=== PATIENT | female | born 1985 | race Caucasian/White ===

== ENCOUNTER 2018-05-28 10:37 | Emergency (ER) | payer OTHER, SELFPAY ==
[2018-05-28 10:53] VITALS: BP 128/92; PULSE 68; RESP 16; TEMP 36.3; O2SAT 97
[2018-05-28 11:32] LABS: Bacteria Urine None Seen; WBC Urine None Seen (0-5/HPF)
[2018-05-28 11:43] LABS: RBC Urine 5-10/HPF (0-5/HPF)
[2018-05-28 11:44] LABS: Amorphous Sediment Urine 3+; Culture Indicated Urine Cult Not Indicated
[2018-05-28 12:12] VITALS: BP 112/66; PULSE 65; RESP 16; TEMP 36.6; O2SAT 100
--- NOTE | 2018-05-28 12:39 | ED_ITS ---
HPI - Female Genitourinary <Rubia Thorne PA-C - Last Filed: 05/28/18 20:59> General Chief complaint: Urogenital-Female Stated complaint: left low back/side pain x1 day Time Seen by Provider: 05/28/18 12:06 Source: patient Mode of arrival: ambulatory Limitations: no limitations History of Present Illness HPI Narrative: This 32-year-old female comes to ED due to acute onset of pain in her bladder area when she awoke early this morning. She states that this started as a pressure sensation like she needed to urinate badly, but when she went it did not relieve the pain. She states that she did not have any susnaa dysuria. She states that a couple hours later pain was getting worse so she got in line for the [place]. She states that she started feeling the pain in her left flank and in between the flank and the bladder, and at 1 point it felt like contractions and was really severe, hard to breathe, so she drove to the clinic and called EMS. They checked her out and she proceeded to come over on the [place]. She states that on the way here, the pain seemed to get better, largely subsided aside from sort of a warm, tingling sensation. She states that she feels a little bit tired now, thinks due to waking up early with the pain. She had some chills earlier. She has not had any fever. She has not had any nausea or vomiting. She has ongoing dysfunctional bleeding issues and spotting, thinks she might have had a little bit of hematuria but hard for her to tell due to the spotting. She denies any possibility of and is on OCP for DUB. She has not had any vaginal discharge or STD concerns. She states she is feeling just about ?100% better? at this point, not having pain, denies chest pain, dyspnea, or new pain or swelling in the extremities. She states that she had restarted Topamax and phentermine to help with weight, but discontinued these after about 4 days and not on any medications now aside from OCP. Related Data Allergies Allergy/AdvReac Type Severity Reaction Status Date / Time No Known Drug Allergies Allergy Verified 05/28/18 10:53 Review of Systems <Rubia Thorne PA-C - Last Filed: 05/28/18 20:59> Review of Systems All systems reviewed & are unremarkable except as noted in HPI and below PFSH <Rubia Thorne PA-C - Last Filed: 05/28/18 20:59> Comment: Previous heavy EtOH use on weekends, none currently Exam <Rubia Thorne PA-C - Last Filed: 05/28/18 20:59> Narrative Exam Narrative: GENERAL APPEARANCE: Patient sitting comfortably, in no distress. HEENT: PERRL, EOMI, no scleral icterus, normal oropharynx NECK: Supple LUNGS: Clear to auscultation bilaterally. HEART: Rate and rhythm regular, normal S1 and S2, no S3 or S4. ABDOMEN: Soft, nontender, nondistended, bowel sounds present x 4 quadrants, no masses palpable, no hepatosplenomegaly. No CVAT EXTREMITIES: No edema, no calf tender DERMATOLOGIC: No jaundice or exanthem NEUROLOGIC: Alert and oriented with normal speech and coordination Initial Vital Signs Initial Vital Signs: Vital Signs Temperature 97.4 F L 05/28/18 10:53 Pulse Rate 68 05/28/18 10:53 Respiratory Rate 16 05/28/18 10:53 Blood Pressure 128/92 H 05/28/18 10:53 Pulse Oximetry 97 05/28/18 10:53 <Leon Neville DO - Last Filed: 05/29/18 07:06> Initial Vital Signs Initial Vital Signs: Vital Signs Temperature 97.4 F L 05/28/18 10:53 Pulse Rate 68 05/28/18 10:53 Respiratory Rate 16 05/28/18 10:53 Blood Pressure 128/92 H 05/28/18 10:53 Pulse Oximetry 97 05/28/18 10:53 Course <Rubia Thorne PA-C - Last Filed: 05/28/18 20:59> Additional Information: We talked about doing lab work and KUB CT, however patient was feeling like pain largely resolved at the time of the visit. She elected to forego further workup, but was going to be in town for several more hours and agreed to return if any acutely worsening symptoms again. Suspect kidney stone that may have passed. Orders Ordered: Discontinued Medications Ibuprofen (Advil) 800 mg PO NOW ONE Stop: 05/28/18 12:27 Last Admin: 05/28/18 12:43 Dose: Not Given Vital Signs - 8 hr 05/28/18 10:53 05/28/18 12:12 Temperature 97.4 F L 97.8 F Pulse Rate 68 65 Respiratory Rate 16 16 Blood Pressure 128/92 H Blood Pressure [Left Arm] 112/66 Pulse Oximetry 97 100 <Leon Neville DO - Last Filed: 05/29/18 07:06> Orders Ordered: Discontinued Medications Ibuprofen (Advil) 800 mg PO NOW ONE Stop: 05/28/18 12:27 Last Admin: 05/28/18 12:43 Dose: Not Given Vital Signs - 8 hr 05/28/18 10:53 05/28/18 12:12 Temperature 97.4 F L 97.8 F Pulse Rate 68 65 Respiratory Rate 16 16 Blood Pressure 128/92 H Blood Pressure [Left Arm] 112/66 Pulse Oximetry 97 100 MDM - Female Genitourinary <Rubia Thorne PA-C - Last Filed: 05/28/18 20:59> Lab Data Lab Results 05/28/18 Range/Units 11:15 Urine RBC 5-10/hpf H (0-5/HPF) Urine WBC None seen (0-5/HPF) Amorphous Sediment 3+ Urine Bacteria None seen (None) Ur Culture Indicated? Cult not indicated Micro UA Comment Not Reportable Point of Care Testing Test Results Negative Urine Dip Bedside Urine Glucose Negative Bedside Urine Bilirubin - Negative Bedside Urine Ketone - Negative Urine Specific [place] 1.015 Bedside Urine Occult Blood +++ Bedside Urine pH 6.0 Bedside Urine Protein +/- 15 Bedside Urine Urobilinogen - Negative Bedside Urine Nitrite - Negative Bedside Urine Leukocytes - Negative Esterase <Leon Neville DO - Last Filed: 05/29/18 07:06> Lab Data Lab Results 05/28/18 Range/Units 11:15 Urine RBC 5-10/hpf H (0-5/HPF) Urine WBC None seen (0-5/HPF) Amorphous Sediment 3+ Urine Bacteria None seen (None) Ur Culture Indicated? Cult not indicated Micro UA Comment Not Reportable Point of Care Testing Test Results Negative Urine Dip Bedside Urine Glucose Negative Bedside Urine Bilirubin - Negative Bedside Urine Ketone - Negative Urine Specific [place] 1.015 Bedside Urine Occult Blood +++ Bedside Urine pH 6.0 Bedside Urine Protein +/- 15 Bedside Urine Urobilinogen - Negative Bedside Urine Nitrite - Negative Bedside Urine Leukocytes - Negative Esterase Discharge Plan Departure Patient Disposition: Home Clinical Impression: Acute left flank pain, Microhematuria Discharge Date/Time: 05/28/18 12:44 Interventions: ED Discharge Assessment Last Done: 05/28/18 12:42 Instructions: DI for Kidney Stones, DI for Flank Pain Activity Restrictions/Additional Instructions: Please return as we talked about if you have acutely worsening symptoms, or new symptoms such as vomiting or fever. Otherwise, it is reasonable to monitor at home since you are feeling so much better. I suspect that you had a kidney stone that passed given your description of the pain. We have given you a dose of Ibuprofen here and you can continue this if you need for any residual pain as well as tylenol if needed. As long as you continue to feel better, please check in with your PCP next week when you are not spotting to make sure the blood in the urine has resolved. You did not have evidence of a urinary infection on your microscopic analysis today. Prescriptions: Discontinued phentermine 15 MG capsule 15 mg PO QDAY Qty: 30 RF: 0 topiramate [Topamax] 25 MG tablet 25 mg PO Q DAY Qty: 30 RF: 0 Referrals: [facility] [Provider Group] <Leon Neville DO - Last Filed: 05/29/18 07:06> [facility] Attending Bassem Attestation: I was available for consultation during this patient's emergency department encounter
== END 2018-05-28 12:44 | disposition home or self-care (01) ==
PROVIDERS: Emergency Medicine; Emergency Provider Internal Medicine; Family Provider Nurse Practitioner; PCP Nurse Practitioner
DX: R10.9 Unspecified abdominal pain (principal); R31.29 Other microscopic hematuria
CPT/HCPCS: 81003; 81015; 81025; 99282; 99283

== ENCOUNTER 2018-05-30 07:33 | Emergency (ER) | payer OTHER, SELFPAY ==
[2018-05-30 07:42] VITALS: BP 137/78; PULSE 68; RESP 13; TEMP 36.8; O2SAT 100
[2018-05-30 07:51] VITALS: BP 137/78; PULSE 67; RESP 14; TEMP 36.8; O2SAT 100
--- NOTE | 2018-05-30 07:52 | ED_ITS ---
HPI - Female Genitourinary General Chief complaint: Urogenital-Female Stated complaint: KIDNEY PAIN Time Seen by Provider: 05/30/18 07:42 Source: patient and old records reviewed Mode of arrival: ambulatory Limitations: no limitations History of Present Illness HPI Narrative: This is a 32-year-old female who comes in with complaint of left flank pain. Patient states she started having symptoms Wednesday, 3 days ago. Patient states that she had a peak of pain on Wednesday, it slowly improved [place] that time she had arrived the on Wednesday and almost completely resolved. She was doing well until yesterday about 4:00 p.m.. Patient states she started having intermittent flank pain. It has not been to the same level intensity. She has been taking ibuprofen and Tylenol regularly around the clock. Patient states that on Wednesday the pain was in her left flank and radiated all the way down into her groin. Today it is just in the left flank region. Patient has felt chilled but no documented fevers, she has felt nauseated but no vomiting. No diarrhea and/or constipation. She has had a sense of urgency, but no dysuria or frequency. No vaginal bleeding and/or discharge patient had some blood in her urine and her ER visit but elected not to further workup on Wednesday. Patient does not have a known history of kidney stones. She denies any other abdominal surgeries. She has had 3 children, and she has had a D&C in the past. She denies any other medical problems other than were motile changes. She states her effusion a progesterone or low at her testosterone is a little high, she is following up with this with her primary. Related Data Previous Rx's Medication Instructions Recorded hydrocodone-acetaminophen [[place]] 1 tab PO Q6H PRN #10 tab 05/30/18 tamsulosin [Flomax] 0.4 mg PO DAILY #7 cap 05/30/18 Allergies Allergy/AdvReac Type Severity Reaction Status Date / Time No Known Drug Allergies Allergy Verified 05/28/18 10:53 Review of Systems Review of Systems All systems reviewed & are unremarkable except as noted in HPI and below Constitutional Reports chills, Denies fever(s), Denies lethargy and Denies weakness Gastrointestinal Gastrointestinal: Denies abdominal pain, Denies change in bowel habits, Denies constipation, Denies diarrhea, Reports nausea and Denies vomiting Genitourinary Reports as per HPI, Denies abnormal vaginal bleeding, Denies hematuria, Denies urinary frequency, Denies difficulty voiding, Denies dysuria, Reports flank pain (Left), Denies urinary incontinence, Denies urinary hesitancy, Reports urinary urgency and Denies vaginal discharge Neurologic Denies weakness [facility] Medical History DUB (dysfunctional uterine bleeding) (Chronic) Surgical History Status post dilation and curettage Family History Father Age: 61 Heart disease Mother Age: 52 Diabetes mellitus Social History Smoking Status: Never smoker alcohol intake: never substance use type: does not use Exam Initial Vital Signs Initial Vital Signs: Vital Signs Temperature 98.2 F 05/30/18 07:42 Pulse Rate 68 05/30/18 07:42 Respiratory Rate 13 05/30/18 07:42 Blood Pressure 137/78 05/30/18 07:42 Pulse Oximetry 100 05/30/18 07:42 GENERAL: Alert and oriented x three, well-nourished, well-appearing female in mild distress. HEENT: Head normocephalic, atraumatic, EOMI, pupils reactive, face symmetric, moist mucous membranes NECK: Supple, full range of motion CARDIOVASCULAR: Regular rate and rhythm without murmurs, rubs or gallops. RESPIRATORY: Breath sounds equal bilaterally, no wheezes rales or rhonchi. ABDOMEN: Soft, nontender. Normoactive bowel sounds all 4 quadrants. No guarding or rebound, rigidity, no mass : No CVA tenderness EXTREMITIES: Normal range of motion, no clubbing or edema. Neurovascularly intact. Normal gait. NEUROLOGICAL: Cranial nerves II through XII grossly intact. Moving all extremities SKIN: Warm, dry, no petechiae, no rashes or lesions. Course Orders Ordered: Discontinued Medications Ketorolac Tromethamine (Toradol) 30 mg IV NOW ONE Stop: 05/30/18 07:51 Last Admin: 05/30/18 08:01 Dose: 30 mg Vital Signs - 8 hr 05/30/18 07:42 05/30/18 07:51 Temperature 98.2 F 98.2 F Pulse Rate 68 67 Respiratory Rate 13 14 Blood Pressure 137/78 Blood Pressure [Right Arm] 137/78 Pulse Oximetry 100 100 MDM - Female Genitourinary Lab Data Attestation: I reviewed the patient's lab results. Result diagrams: 05/30/18 07:50 05/30/18 07:50 Lab Results 05/30/18 05/30/18 05/30/18 Range/Units 07:45 07:50 07:50 WBC 13.9 H (4.5-11.0) X10^3/uL RBC 4.69 (4.0-5.2) X10^6/uL Hgb 13.7 (12.0-16.0) g/dL Hct 40.0 (36-46) % MCV 85.4 (80-100) fL MCH 29.1 (26-34) PG MCHC 34.1 (30-36) % RDW 12.2 (11.6-14.8) % Plt Count 236 (150-400) X10^3/uL Neut % (Auto) 72.6 (50-75) % Lymph % (Auto) 15.8 L (25-40) % [place] % (Auto) 9.1 (3-14) % Eos % (Auto) 2.1 (2-4) % Baso % (Auto) 0.4 (0-2) % Neut # (Auto) 60446 H (3241-4670) /uL PT 11.4 (10.1-12.7) SECONDS INR 1.0 (0.9-1.3) APTT 27 (26.4-36.2) SECONDS Sodium (137-145) mmol/L Potassium (3.4-5.1) mmol/L Chloride (98-107) mmol/L Carbon Dioxide (22-32) mmol/L BUN (7-17) mg/dL Creatinine (0.52-1.04) mg/dL Estimated GFR (>60) mL/min BUN/Creatinine Ratio (6-22) Glucose (70-100) mg/dL Calcium (8.4-10.2) mg/dL Total Bilirubin (0.2-1.3) mg/dL AST (14-36) IU/L ALT (9-52) IU/L Alkaline Phosphatase (38-126) U/L Total Protein (6.3-8.2) g/dL Albumin (3.5-5.0) g/dL Globulin (1.7-4.1) g/dL Albumin/Globulin Ratio (1.0-2.8) Urine RBC 1-5/hpf (0-5/HPF) Urine WBC None seen (0-5/HPF) Urine Bacteria None seen (None) Ur Culture Indicated? Cult not indicated Micro UA Comment Not Reportable 05/30/18 Range/Units 07:50 WBC (4.5-11.0) X10^3/uL RBC (4.0-5.2) X10^6/uL Hgb (12.0-16.0) g/dL Hct (36-46) % MCV (80-100) fL MCH (26-34) PG MCHC (30-36) % RDW (11.6-14.8) % Plt Count (150-400) X10^3/uL Neut % (Auto) (50-75) % Lymph % (Auto) (25-40) % [place] % (Auto) (3-14) % Eos % (Auto) (2-4) % Baso % (Auto) (0-2) % Neut # (Auto) (4346-0113) /uL PT (10.1-12.7) SECONDS INR (0.9-1.3) APTT (26.4-36.2) SECONDS Sodium 138 (137-145) mmol/L Potassium 4.3 (3.4-5.1) mmol/L Chloride 104 (98-107) mmol/L Carbon Dioxide 24 (22-32) mmol/L BUN 11 (7-17) mg/dL Creatinine 0.90 (0.52-1.04) mg/dL Estimated GFR > 60.0 (>60) mL/min BUN/Creatinine Ratio 12.2 (6-22) Glucose 100 (70-100) mg/dL Calcium 9.8 (8.4-10.2) mg/dL Total Bilirubin 0.6 (0.2-1.3) mg/dL AST 35 (14-36) IU/L ALT 66 H (9-52) IU/L Alkaline Phosphatase 73 (38-126) U/L Total Protein 7.3 (6.3-8.2) g/dL Albumin 4.0 (3.5-5.0) g/dL Globulin 3.3 (1.7-4.1) g/dL Albumin/Globulin Ratio 1.2 (1.0-2.8) Urine RBC (0-5/HPF) Urine WBC (0-5/HPF) Urine Bacteria (None) Ur Culture Indicated? Micro UA Comment Point of Care Testing Test Results Negative Urine Dip Bedside Urine Glucose Negative Bedside Urine Bilirubin - Negative Bedside Urine Ketone - Negative Urine Specific [place] 1.025 Bedside Urine Occult Blood + Bedside Urine pH 6.0 Bedside Urine Protein - Negative Bedside Urine Urobilinogen - Negative Bedside Urine Nitrite - Negative Bedside Urine Leukocytes - Negative Esterase Imaging Data CT KUB: Radiologist's impression: [address] [address] [address] Scan Report Signed Patient: Michael Hurtado MR#: [id number] : 1985 Acct:[id number] Age/Sex: 32 / F Date of Service: 05/30/18 Loc: ED Accession Number: [id number] Procedure: CT kidney ureter bladder (KUB) Ordering Provider: Kyleigh Villatoro D.O. PROCEDURE: CT KIDNEY URETER BLADDER (KUB) INDICATIONS: left flank pain, intermittent TECHNIQUE: Noncontrast 5 mm thick sections acquired from the diaphragms to the symphysis. 5 mm thick coronal and sagittal reformats were then performed. For radiation dose reduction, the following was used: automated exposure control, adjustment of mA and/or kV according to patient size. COMPARISON: None. FINDINGS: Image quality: Excellent. Lung bases: Lung bases are clear. Heart size is normal. Urinary system: There is a small obstructing stone in the distal left ureter measuring up to 4 mm with associated mild to moderate left hydroureteronephrosis. There is also associated perinephric and periureteral fat stranding. No additional renal stones identified. There is no right hydronephrosis. The urinary bladder demonstrates normal wall thickness. No calcified bladder stones. Other solid organs: Noncontrast evaluation of the liver demonstrates no focal hepatic lesions. The gallbladder appears within normal limits without calcified gallstones. Pancreas is normal in contours. Spleen is normal in size. No adrenal nodules. Peritoneum and bowel: Unenhanced bowel loops demonstrate normal wall thickness and caliber. The appendix is normal in appearance. No free fluid or air. Nodes and vessels: No retroperitoneal or mesenteric adenopathy by size criteria. Aorta and inferior vena cava are normal in caliber. Abdominal wall: No ventral hernias. Pelvis: No free pelvic fluid. No inguinal hernias or adenopathy. Bones: No suspicious bony lesions. No vertebral body compression fractures. IMPRESSION: 1. Small obstructing 4 mm distal left ureteral stone with [id number] left hydroureteronephrosis. Dictated by: Getachew White M.D. on 05/30/2018 at 8:32 Approved by: Getachew White M.D. on 05/30/2018 at 8:38 [facility] Narrative Medical decision making narrative: Patient has a kidney stone on left as seen on CT, labs show elevation of wbc count at 13, otherwise normal with no anemia, no elevation in creatinine, lytes are normal. Urine shows blood, no signs of infection. Patient pain improved in ED with Toradol, she states it seems like it's gone or maybe just barely there. Given rx for flomax, and narcotic rx for breakthrough pain, Patient can continue ibuprofen for pain. Discussed signs/ symptoms to return. Patient can continue OTC for pain control but given rx for breakthrough pain. Patient given referral for urology if she would like but can follow up with pcp if she prefers as she lives on [address]. Discharge Plan Departure Patient Disposition: Home Clinical Impression: Calculus of distal left ureter Discharge Date/Time: 05/30/18 09:11 Interventions: ED Discharge Assessment Last Done: 05/30/18 09:10 Instructions: DI for Kidney Stones Activity Restrictions/Additional Instructions: Follow up with primary care or urology in the next 3-5 days for recheck. The urology clinic is through [facility]. The office number is Continue flomax daily until gone. Take pain medications as prescribed. You may take ibuprofen 600 mg every 6 as needed for pain. If this is not adequate urine prescribed narcotic that you may take with this. This medication can make you sleepy do not drive, perform hazards activities or make any major decisions while taking it. You may take maximum 2400mg ibuprofen in 24 hours and 3000mg of tylenol/ acetaminophen in 24 hours. Make sure your drinking plenty of fluids and staying hydrated. Return to the emergency department for fevers greater than 100.4 F, worsening back flank or abdominal pain, persistent vomiting, inability urinate, or other new or concerning symptoms. Prescriptions: New hydrocodone-acetaminophen [[place]] 5-325 mg tablet 1 tab PO Q6H PRN (Reason: pain) Qty: 10 RF: 0 tamsulosin [Flomax] 0.4 mg capsule 0.4 mg PO DAILY Qty: 7 RF: 0 Referrals: Jannet Neri ARNP [Primary Care Provider] -
[2018-05-30 08:00] LABS: Bacteria Urine None Seen; WBC Urine None Seen (0-5/HPF)
[2018-05-30] MEDS: KETOROLAC 30 MG/ML VIAL IV (08:01)
[2018-05-30 08:04] LABS: Add Manual Diff / Slide Review NO; Basophils Percent Auto 0.4 % (0-2); Eosinophils Percent Auto 2.1 % (2-4); Hemoglobin 13.7 g/dL (12.0-16.0); Lymphocytes Percent Auto 15.8 % (25-40); Mean Corpuscular HGB Conc 34.1 % (30-36); Mean Corpuscular Hemoglobin 29.1 PG (26-34); Mean Corpuscular Volume 85.4 fL (80-100); Monocytes Percent Auto 9.1 % (3-14); Neutrophils Absolute Auto 10100 /uL (1500-7000); Neutrophils Percent Auto 72.6 % (50-75); Platelet Count 236 X10^3/uL (150-400); Red Blood Cell Count 4.69 X10^6/uL (4.0-5.2); Red Cell Distribution Width 12.2 % (11.6-14.8); White Blood Cell Count 13.9 X10^3/uL (4.5-11.0)
--- NOTE | 2018-05-30 08:05 | PC.NURSE ---
left flank pain for 2 days, pt here for CT today. denies fever, felt with chills, denies vomiting, but with nausea. has been taking motrin, last dose at 530am.
[2018-05-30 08:09] LABS: Prothrombin Time 11.4 SECONDS (10.1-12.7)
[2018-05-30 08:12] LABS: PTT Partial Thromboplastin Tim 27 SECONDS (26.4-36.2)
[2018-05-30 08:13] LABS: Culture Indicated Urine Cult Not Indicated; RBC Urine 1-5/HPF (0-5/HPF)
[2018-05-30 08:14] LABS: Alanine Aminotransferase 66 IU/L (9-52); Albumin Globulin Ratio 1.2 (1.0-2.8); Alkaline Phosphatase 73 U/L (38-126); Aspartate Aminotransferase 35 IU/L (14-36); BUN Creatinine Ratio 12.2 (6-22); Bilirubin Total 0.6 mg/dL (0.2-1.3); Blood Urea Nitrogen 11 mg/dL (7-17); Calcium 9.8 mg/dL (8.4-10.2); Carbon Dioxide 24 mmol/L (22-32); Chloride 104 mmol/L (98-107); Estimated Glomerular Filt Rate > 60.0 mL/min (>60); Globulin 3.3 g/dL (1.7-4.1); Glucose 100 mg/dL (70-100); HEMOLYSIS < 15 (0-50); Potassium 4.3 mmol/L (3.4-5.1); Sodium 138 mmol/L (137-145); Total Protein 7.3 g/dL (6.3-8.2)
== END 2018-05-30 09:11 | disposition home or self-care (01) ==
PROVIDERS: Emergency Provider Emergency Medicine; Family Provider Nurse Practitioner; PCP Nurse Practitioner
DX: N20.1 Calculus of ureter (principal)
CPT/HCPCS: 36591; 74176; 80053; 81003; 81015; 81025; 85025; 85610; 85730; 96374; 99283; 99284; J1885

== ENCOUNTER → 2018-08-09 10:55 | Outpatient (CLI) | payer OTHER, SELFPAY ==
[2018-08-09 15:46] LABS: Urine N gonorrhoeae NOT DETECTED
[2018-08-09 15:59] LABS: Urine Chlamydia NOT DETECTED
== END ==
PROVIDERS: Family Provider Nurse Practitioner; PCP Nurse Practitioner; Visit Provider Obstetrics & Gynecology
DX: Z34.03 Encounter for supervision of normal first pregnancy, third trimester (principal)
CPT/HCPCS: 87491; 87591

== ENCOUNTER → 2018-10-21 14:57 | Outpatient (CLI) | payer OTHER, SELFPAY ==
--- NOTE | 2018-10-21 14:58 | DI.US.S_ITS ---
PROCEDURE: US OB >= 14 WEEKS FETUS INDICATIONS: ANATOMY OUTSIDE/PRIOR DATING DATA: Last menstrual period (LMP): 05/13/18. LMP-based estimated date of delivery (EZEQUIEL): 02/17/19. First dating scan (date and location): 07/19/18. Estimated date of delivery (EZEQUIEL) from first dating scan: 03/07/19. TECHNIQUE: Real-time scanning was performed of the fetus, with image documentation and biometric measurements. Endovaginal scanning: Not performed COMPARISON: [facility], , OB <= 14 WEEKS FETUS, 07/19/2018, 16:01. [facility], , OB >= 14 WEEKS FETUS, 10/21/2018, 14:44. FINDINGS: General: A single living intrauterine gestation is present. Presentation: Breech. Placenta: Placental position is anterior and fundal, without previa. There is a marginal cord insertion. Amniotic fluid index: 13.7 cm, normal range is 5-24 cm. heart rate: 157 beats per minute. Maternal cervical canal: 3.6 cm long. Normal lower limit is 2.5 cm. biometrics: Biparietal diameter: 4.6 cm, 20 weeks, zero days Head circumference: 18.2 cm, 20 weeks, 4 days Abdominal circumference: 16.9 cm, 21 weeks, 6 days Femur length: 3.3 cm, 20 weeks, one day Estimated gestational age from initial scan: 20 weeks, 3 days. Composite gestational age from present scan: 20 weeks, 5 days Estimated weight and percentile: 393 g, 77th percentile Measurement variability for biometric dating: +/- 7 days from 14 weeks to 15 weeks 6 days gestation, +/- 10 days from 16 weeks to 21 weeks 6 days gestation, +/- 2 weeks from 22 weeks to 27 weeks 6 days gestation, +/- 3 weeks for 28 weeks gestation or later. weight reference: 4500 g or EFW >90/95% is considered macrosomia or large for gestational age. EFW <10% is small for gestational age. EFW 5% or less is considered intra-uterine growth restriction. Anatomic survey: Neuro: Ventricles are non-dilated at less than 10 mm. Cisterna magna is normal at 3-11 mm. Cerebellum is normal in size and morphology. Nuchal skin fold: Normal at less than 6 mm between 14-21 weeks gestational age. Face: Nose and lips, facial profile are normal. Spine: No evidence for spina bifida. Heart: 4-chambered heart is present, with normal ventricular outflow tracts. Diaphragm: Diaphragm is intact. Stomach: Left-sided stomach is present. Kidneys: No hydronephrosis. Normal is less than 5 mm in 2nd trimester, less than 7 mm in 3rd trimester. Cord: 3-vessel cord has orthotopic insertion. Bladder: Normal in size. Extremities: All 4 extremities identified. IMPRESSION: 1. Single living intrauterine with a composite gestational age in good agreement with the initially assigned gestational age. 2. Symmetric growth and normal anatomy. 3. Marginal placental cord insertion. This may put the fetus at risk for intrauterine growth restriction and followup biometry in the third trimester could be considered. Dictated by: Windy Ennis M.D. on 10/21/2018 at 17:05 Approved by: Windy Ennis M.D. on 10/21/2018 at 17:14
== END ==
PROVIDERS: Family Provider Nurse Practitioner; PCP Nurse Practitioner; Visit Provider Obstetrics & Gynecology
DX: Z34.82 Encounter for supervision of other normal pregnancy, second trimester (principal); Z3A.20 20 weeks gestation of pregnancy
CPT/HCPCS: 76811

== ENCOUNTER → 2018-11-21 13:32 | Outpatient (CLI) | payer OTHER, SELFPAY ==
[2018-11-21 16:49] LABS: Appearance Urine UA SL CLOUDY; Bilirubin Urine UA NEGATIVE (NEGATIVE); Color Urine UA ORANGE; Glucose Urine UA TRACE g/dL (Negative); Ketones Urine UA NEGATIVE (NEGATIVE); Leukocyte Esterase Urine UA NEGATIVE (NEGATIVE); Nitrite Urine UA NEGATIVE (Negative); Occult Blood Urine UA NEGATIVE (Negative); Protein Urine UA TRACE (Negative)
[2018-11-21 16:50] LABS: Add Manual Diff / Slide Review NO; Basophils Absolute Auto 0 /uL (0-100); Basophils Percent Auto 0.3 % (0-2); Eosinophils Absolute Auto 300 /uL (0-450); Eosinophils Percent Auto 2.6 % (2-4); Hematocrit 35.5 % (36-46); Hemoglobin 12.3 g/dL (12.0-16.0); Lymphocytes Absolute Auto 2000 /uL (1100-4500); Lymphocytes Percent Auto 20.2 % (25-40); Mean Corpuscular HGB Conc 34.7 % (30-36); Mean Corpuscular Hemoglobin 30.5 PG (26-34); Mean Corpuscular Volume 87.9 fL (80-100); Monocytes Absolute Auto 700 /uL (0-900); Monocytes Percent Auto 6.9 % (3-14); Neutrophils Absolute Auto 7000 /uL (1500-7000); Platelet Count 213 X10^3/uL (150-400); Red Blood Cell Count 4.04 X10^6/uL (4.0-5.2); Red Cell Distribution Width 13.2 % (11.6-14.8)
[2018-11-21 16:56] LABS: GTT (PREG) 1 Hour PP 50gm Dose 144 mg/dL (76-139)
[2018-11-21 19:04] LABS: Hepatitis B Surface Antigen NEGATIVE s/c (NEGATIVE)
[2018-11-21 19:30] LABS: HIV 1 and 2 Antibody NEGATIVE (NEGATIVE); Hep C Virus Ab w/Reflex Quant NEGATIVE s/c (NEGATIVE)
[2018-11-23 19:37] LABS: RPR Screen Nonreactive (Nonreactive)
== END ==
PROVIDERS: PCP Nurse Practitioner; Visit Provider Obstetrics & Gynecology
DX: Z34.81 Encounter for supervision of other normal pregnancy, first trimester (principal); Z34.82 Encounter for supervision of other normal pregnancy, second trimester
CPT/HCPCS: 36415; 80055; 81003; 82950; 86703; 86787; 86803; 86850; 86900; 86901; 87086

== ENCOUNTER → 2019-01-11 11:39 | Outpatient (CLI) | payer OTHER, SELFPAY ==
[2019-01-11 16:07] LABS: RBC Urine None Seen (0-5/HPF)
[2019-01-11 16:39] LABS: Appearance Urine UA CLEAR; Color Urine UA YELLOW; Glucose Urine UA NEGATIVE (Negative); Ketones Urine UA 3+ (NEGATIVE); Leukocyte Esterase Urine UA TRACE (NEGATIVE); Nitrite Urine UA NEGATIVE (Negative); Occult Blood Urine UA TRACE-LYSED (Negative); Protein Urine UA TRACE (Negative); Specific Gravity Urine UA >=1.030 (1.000-1.035); Urobilinogen Urine UA 0.2 E.U./dL (0.2)
[2019-01-11 16:50] LABS: Squamous Epithelial Cell Urine 1-5 /HPF (0-5/HPF)
[2019-01-11 16:51] LABS: Bacteria Urine Many (>30); Uric Acid Crystals Urine Few; WBC Urine 0-1/HPF (0-5/HPF)
[2019-01-11 16:52] LABS: Culture Indicated Urine Cult Not Indicated; Mucus Urine 1+ (Negative)
[2019-01-11 16:55] LABS: Bilirubin Urine UA 1+ (NEGATIVE)
== END ==
PROVIDERS: PCP Nurse Practitioner; Visit Provider Obstetrics & Gynecology
DX: R82.90 Unspecified abnormal findings in urine (principal)
CPT/HCPCS: 81001

== ENCOUNTER → 2019-02-01 14:45 | Outpatient (CLI) | payer OTHER, SELFPAY ==
[2019-02-02 12:14] LABS: Strep Grp B PCR POS for Grp B Strep
== END ==
PROVIDERS: PCP Nurse Practitioner; Visit Provider Obstetrics & Gynecology
DX: Z34.83 Encounter for supervision of other normal pregnancy, third trimester (principal)
CPT/HCPCS: 87653

== ENCOUNTER 2019-03-02 07:01 | Inpatient (IN) | payer OTHER, SELFPAY ==
[2019-03-02 07:58] LABS: Add Manual Diff / Slide Review NO; Basophils Absolute Auto 0 /uL (0-100); Basophils Percent Auto 0.4 % (0-2); Eosinophils Absolute Auto 200 /uL (0-450); Hematocrit 34.3 % (36-46); Hemoglobin 11.8 g/dL (12.0-16.0); Lymphocytes Absolute Auto 2100 /uL (1100-4500); Lymphocytes Percent Auto 23.7 % (25-40); Mean Corpuscular HGB Conc 34.3 % (30-36); Mean Corpuscular Volume 81.5 fL (80-100); Monocytes Absolute Auto 700 /uL (0-900); Neutrophils Absolute Auto 5700 /uL (1500-7000); Neutrophils Percent Auto 65.9 % (50-75); Platelet Count 184 X10^3/uL (150-400); Red Blood Cell Count 4.21 X10^6/uL (4.0-5.2); Red Cell Distribution Width 13.9 % (11.6-14.8); White Blood Cell Count 8.7 X10^3/uL (4.5-11.0)
[2019-03-02] MEDS: LACTATED RINGERS 1,000 ML 100 ML IV (08:02)
[2019-03-02] MEDS: OXYTOCIN PREMIX 30 UNIT/500 ML PLAST..BAG IV (08:06)
[2019-03-02] MEDS: PENICILLIN G POTASSIUM 5,000,000 UNIT in DEXTROSE 5% IN WATER 250 ML IV (08:32)
[2019-03-02 10:50] VITALS: BP 117/68
[2019-03-02] MEDS: PENICILLIN G POTASSIUM 3,000,000 UNIT/50 ML FROZ.PIGGY 100 UNIT IV (12:21)
--- NOTE | 2019-03-02 12:59 | PM.OBHP.1 ---
OB HPI Date/Time Date of admission: 03/02/19 Date Patient Seen: 03/02/19 Time Patient Seen: 07:45 History of Present Condition Chief complaint: LABOR & DELIVERY : 6 Para: 3 Estimated Date of Delivery: 03/07/19 Estimated Gestational Age (weeks): 39+2 Narrative: Michael Hurtado is a 33 year old female 6 para 3 at 39-,2/7 weeks gestation for induction of labor due to history of fast labors, gestational diabetes, and living on [place] Indications Indication for induction OB: maternal distance and history of rapid labor History of Present care: good care, initiated at week # (7), number of visits (10) and pounds weight gain (5) Dating criteria: LMP confirmed by 1st trimester US Ultrasounds: normal 1st trimester US and normal mid trimester US Obstetrical complications: gestational diabetes (No meds) Medical complications: none Preadmission Labs Blood type: O (+) positive -: Antibody screen: negative, GBS status: positive, HBsAG: negative, HIV: negative and RPR/VDLR: negative -: Chlamydia screen: not detected and Gonorrhea screen: not detected -: Rubella: immune and Varicella: immune HCT: 35.5 HCAB: negative Urine: negative 1 hr GTT: 144 3 hr GTT: 1 hr (171), 2 hr (165) and 3 hr Fasting blood glucose: 95 Prior (ies) History: 3 2 SAB Evaluation Evaluation Baseline heart rate: 135 Variability: Moderate (11-25) monitor accelerations: Present monitor decelerations: Absent Contraction Frequency (minutes): 3 Category of Tracing: I Cervical dilation (cm): 3 Cervical effacement (%): 90 station: 0 Laboratory results: Laboratory Tests 03/02/19 03/02/19 07:45 07:45 WBC 8.7 RBC 4.21 Hgb 11.8 L Hct 34.3 L MCV 81.5 MCH 28.0 MCHC 34.3 RDW 13.9 Plt Count 184 Neut % (Auto) 65.9 Lymph % (Auto) 23.7 L [place] % (Auto) 8.0 Eos % (Auto) 2.0 Baso % (Auto) 0.4 Neut # (Auto) 5700 Lymph # (Auto) 2100 [place] # (Auto) 700 Eos # (Auto) 200 Baso # (Auto) 0 Blood Type O Positive Antibody Screen Negative PFSH Family History (Updated 08/17/16 @ 00:00 by Conversion Provider) Father Age: 62 Heart disease Mother Age: 53 Diabetes mellitus Social History (Updated 05/30/18 @ 07:57 by Kyleigh Villatoro DO) Smoking Status: Never smoker alcohol intake: never substance use type: does not use Meds Home Medications and Allergies Home Medications Medication Instructions Recorded Confirmed Type prenat.vits,manuel,szh-fnqn-qgorx 1 tab PO DAILY 07/19/18 03/02/19 History blood-glucose meter #1 each 01/05/19 Rx lancets-blood glucose strips 30 #100 each 01/05/19 Rx gauge and blood glucose strips combo pack Allergies Allergy/AdvReac Type Severity Reaction Status Date / Time No Known Drug Allergies Allergy Verified 05/28/18 10:53 Exam Vital Signs (past 8 hours): - 03/02/19 10:50 Blood Pressure 117/68 Narrative Exam Narrative: Generally: No acute distress Lungs: Clear to auscultation bilaterally Cardiovascular: Regular rate and rhythm Fundal height: 41 cm Estimated weight: 8 lb Extremities: Negative Homans, trace edema Objective Labs Result Diagrams: 03/02/19 07:45 Labs: Laboratory Results - last 24 hr 03/02/19 03/02/19 07:45 07:45 WBC 8.7 RBC 4.21 Hgb 11.8 L Hct 34.3 L MCV 81.5 MCH 28.0 MCHC 34.3 RDW 13.9 Plt Count 184 Neut % (Auto) 65.9 Lymph % (Auto) 23.7 L [place] % (Auto) 8.0 Eos % (Auto) 2.0 Baso % (Auto) 0.4 Neut # (Auto) 5700 Lymph # (Auto) 2100 [place] # (Auto) 700 Eos # (Auto) 200 Baso # (Auto) 0 Blood Type O Positive Antibody Screen Negative Assessment and Plan Assessment and Plan Assessment and Plan narrative: Assessment: 33-year-old 6 para 3 at 39-,2/7 weeks gestation for induction of labor due to history of fast labors, living on [place], and gestational diabetes Plan: Pitocin started Artificial rupture of membranes with copious clear amniotic fluid Expected management to spontaneous vaginal delivery Time Spent with Patient Total time spent with greater than 50% in coordination of care (as documented) at patient's floor/unit and/or counseling patient:: 15-24 minutes
[2019-03-02] MEDS: IBUPROFEN 600 MG TABLET PO ×2 (14:30→21:03)
--- NOTE | 2019-03-02 17:31 | PM.OBPRVD ---
 Events: Labor Induction Labor & Delivery Delivery date: 03/02/19 Intrapartal events: Precipitous Labor < 3 hours and Diabetes Cervical ripening method: none Induction method: per pitocin protocol Delivery augmentation: rupture of membranes Delivery monitor: external FHT and external uterine Route of delivery: Episiotomy description: None L&D Laceration Description: None Estimated blood loss (mL): 150 Anesthesia type: None Complications: None Narrative: The patient completed which x1. At 1:34 p.m., a live female with continue Tonja precipitously remain intact perineum. Infant was placed on mom's abdomen. The cord with a limp and cut. Cord bloods were obtained. The placenta delivered intact with a 3 vessel cord at 1:40 p.m.. Fundus was massaged firm. Pitocin given in the IV fluids. No lacerations noted. 150 cc estimated blood loss. Apgars 8 at 1 min and 9 at 5 min. No analgesia. . Mom and infant stable to recovery. Plan for aftercare: To routine care the
[2019-03-02 17:45] LABS: Hematocrit 32.6 % (36-46); Hemoglobin 11.1 g/dL (12.0-16.0)
[2019-03-03] MEDS: PRENATAL VIT,CALC/IRON/FOLIC 1 TABLET 1 TAB PO (10:52)
[2019-03-03] MEDS: DOCUSATE 250 MG CAPSULE PO (10:52)
--- NOTE | 2019-03-03 12:44 | P.DS_ITS ---
Discharge Providers Provider Date of admission: 03/02/19 07:01 Discharge Date: 03/03/19 Primary care physician: DAVID Galo Consults: 03/03/19 15:32 Consult to Instrument Maker Apprentice Routine Comment: Discharge provider: Lois Navas MD Summary Hospital Course Date Patient Seen: 03/03/19 Time Patient Seen: 11:30 Procedures: Pitocin in AROM induction, spontaneous vaginal delivery Hospital Course: Patient was admitted to Labor and delivery for Pitocin induction for 39 weeks gestational diabetes with a history of fast labors and distance from the hospital. Patient had a precipitous labor and delivery. She had a spontaneous vaginal delivery and did well . She is breast-feeding without difficulty. She is urinating and ambulating well with minimal pain. Peripartum Data Delivery Method: Natural Vaginal Laceration description: None Procedures: Pitocin induction, spontaneous vaginal delivery complications: none 1: Gender: Female Disposition of : home Discharge Diagnosis (1) Vaginal delivery: Status: Acute (2) Gestational diabetes: Status: Acute Time Spent with Patient Time attestation: Total time spent providing and/or coordinating discharge services: Objective Labs Result Diagrams: 03/02/19 17:35 Labs: Laboratory Results - last 24 hr 03/02/19 17:35 Hgb 11.1 L Hct 32.6 L Exam Vital Signs (past 8 hours): Blood pressure 116/76, pulse of 86, temperature 97.6? Narrative Exam Narrative: Abdomen is soft, nontender. Uterus is firm, at U, nontender. Mild lochia. Extremities with out edema and nontender. Patient's blood type is O positive and she is rubella immune. Discharge Plan Discharge Plan Patient Disposition: Home Discharge comment: Call with fever, chills, or bleeding vaginally more than a pad an hour Ibuprofen 600 mg every 6 hr as needed for cramping Discharge Med Rec/Prescriptions Prescriptions: Continued prenat.vits,manuel,nyy-tjnr-qpjwl tablet 1 tab PO DAILY RF: 0 Discontinued (DME) blood-glucose meter misc See Dose Instructions .ROUTE .MEDSUPPLY Qty: 1 RF: 0 (DME) lancets-blood glucose strips 30 gauge combo pack See Dose Instructions .ROUTE .MEDSUPPLY Qty: 100 RF: 2 Follow up/Referrals: Caron Zapata MD [Physician] - 6 Weeks (Dr.Garde 11:00am) Provider Discharge Instructions Diet: Regular Activity: No intercourse Skin/Wound/Dressing Care Report to your healthcare provider any signs of infection, such as:: chills, fever, increased pain and unusual drainage Visit Report/Discharge Packet Instructions: DI for Labor and Delivery, Vaginal Discharge Data Primary Care Provider: Angelia Mcmillan Discharges patient from system. Discharge Date/Time: 03/03/19 15:30
[2019-03-03 14:27] VITALS: BP 116/76; PULSE 86; RESP 16; TEMP 36.4
== END 2019-03-03 15:30 | disposition home or self-care (01) | DRG 807 ==
PROVIDERS: Admitting Provider Obstetrics & Gynecology; PCP Nurse Practitioner Family; Visit Provider Obstetrics & Gynecology
DX: O24.420 Gestational diabetes mellitus in childbirth, diet controlled (principal); Z37.0 Single live birth; O62.3 Precipitate labor; O99.824 Streptococcus B carrier state complicating childbirth; Z3A.39 39 weeks gestation of pregnancy
CPT/HCPCS: 36415; 59050; 59400; 85014; 85018; 85025; 86850; 86900; 86901; G0379; J2540; J2590

== ENCOUNTER 2019-03-12 15:14 | Emergency (ER) | payer OTHER, SELFPAY ==
[2019-03-12 15:19] VITALS: BP 125/76; PULSE 79; RESP 14; TEMP 36.4; O2SAT 98
--- NOTE | 2019-03-12 16:03 | ED_ITS ---
HPI - Abdominal Pain <DAVID Martino - Last Filed: 03/12/19 20:52> General Chief Complaint: Abdominal Pain Stated Complaint: fever,lwr abdominal pain Time Seen by Provider: 03/12/19 15:48 Source: patient Mode of arrival: Ambulatory Limitations: no limitations History of Present Illness HPI narrative: 33-year-old female who is 10 days vaginal delivery without complication, presents emergency department complaining of lower abdominal pain for the past 4 days. She states she has had a fever off and on and has been as high as 104. She states she develops a fever and then she sweats in the fever drops. She has associated chills when she is febrile. She reports some nausea and has had a dry cough that is slowly resolving is for the past few weeks. She denies chest pain, shortness of breath, increased vaginal bleeding, abnormal vaginal discharge, nasal congestion, ear pain, vomiting, diarrhea, breast tenderness or redness or other concerns. Related Data Home Medications Medication Instructions Recorded Confirmed prenat.vits,manuel,ojj-wddp-piebv 1 tab PO DAILY 07/19/18 03/02/19 Previous Rx's Medication Instructions Recorded cephalexin [Keflex] 500 mg PO BID 7 Days #14 cap 03/12/19 Allergies Allergy/AdvReac Type Severity Reaction Status Date / Time No Known Drug Allergies Allergy Verified 03/12/19 15:23 Review of Systems <DAVID Martino - Last Filed: 03/12/19 20:52> Review of Systems Narrative: REVIEW OF SYSTEMS: GENERAL: Reports fever, see HPI. HENT: No head trauma, sore throat, or dysphagia. EYES: No loss of vision, double vision, eye pain, or irritation. CARDIOVASCULAR: No chest pain, palpitations, or orthopnea. RESPIRATORY: No shortness of breath or cough. GASTROINTESTINAL: Complains of bilateral lower quadrant abdominal pain, see HPI GENITOURINARY: Denies dysuria. States she is 10 days , see HPI MUSCULOSKELETAL: No pain, weakness, or trauma. INTEGUMENTARY: No rash, lesions, or pruritus. NEURO: No numbness, tingling, memory loss, confusion, or headaches. PSYCH: No behavior or mood changes. PFSH <DAVID Martino - Last Filed: 03/12/19 20:52> Medical History DUB (dysfunctional uterine bleeding) (Chronic) Surgical History Status post dilation and curettage Family History (Updated 08/17/16 @ 00:00 by Conversion Provider) Father Age: 62 Heart disease Mother Age: 53 Diabetes mellitus Social History (Updated 05/30/18 @ 07:57 by Kyleigh Villatoro DO) Smoking Status: Never smoker alcohol intake: never substance use type: does not use Family History Father Age: 62 Heart disease Mother Age: 53 Diabetes mellitus Social History Smoking Status: Never smoker alcohol intake: never substance use type: does not use Exam <DAVID Martino - Last Filed: 03/12/19 20:52> Narrative Exam Narrative: PHYSICAL EXAMINATION: GENERAL: Well groomed, alert, and cooperative. Answers questions promptly and appropriately. Vital signs noted. HENT: Normocephalic, atraumatic. Hearing intact. Oral mucosa is pink and moist. EYES: Conjunctiva pink, sclera white, no periorbital swelling. CARDIOVASCULAR: S1 and S2 sounds normal. Regular rate and rhythm, no murmurs, clicks, or bruits. No pedal edema. RESPIRATORY: Normal respiratory rate, trachea midline, airway patent. No stridor, nasal flaring or accessory muscle use. Lungs are clear in all herbert without wheeze, rhonchi, or crackles. GASTROINTESTINAL: Bowel sounds normoactive. Abdomen is soft, slight bilateral lower quadrant tenderness noted with palpation. No organomegaly, no palpable masses. GENITALURINARY: No flank tenderness. PELVIC EXAM: No cervical motion tenderness. No cervical exudate, moderate amount of blood and clots noted. RN Kaitlyn present during exam. MUSCULOSKELETAL: Normal gait and coordination. Equal tone and mass bilaterally. EXTREMITIES: CMS intact, no pedal edema. SKIN: Warm, dry, soft, appropriate color for ethnicity. No lesions, rashes, or wounds. NEURO: Alert and Oriented X 3. Good coordination. No ataxia, or sensory deficits, or cognitive issues. PSYCH: Appropriate affect and mood. Initial Vital Signs Initial Vital Signs: Vital Signs Temperature 97.6 F 03/12/19 15:19 Pulse Rate 79 03/12/19 15:19 Respiratory Rate 14 03/12/19 15:19 Blood Pressure 125/76 03/12/19 15:19 Pulse Oximetry 98 03/12/19 15:19 <Leon Neville DO - Last Filed: 03/13/19 07:08> Initial Vital Signs Initial Vital Signs: Vital Signs Temperature 97.6 F 03/12/19 15:19 Pulse Rate 79 03/12/19 15:19 Respiratory Rate 14 03/12/19 15:19 Blood Pressure 125/76 03/12/19 15:19 Pulse Oximetry 98 03/12/19 15:19 Course <DAVID Martino - Last Filed: 03/12/19 20:52> Orders Ordered: Discontinued Medications Cephalexin HCl (Keflex) 500 mg PO NOW ONE Stop: 03/12/19 17:13 Last Admin: 03/12/19 17:31 Dose: 500 mg Documented by: GHANSHYAM Consultations Consultation #1: Patient was staffed with Dr. Neville. Vital Signs Vital signs: Vital Signs - 8 hr 03/12/19 15:19 03/12/19 17:07 Temperature 97.6 F 97.5 F L Pulse Rate 79 78 Respiratory Rate 14 16 Blood Pressure 125/76 Blood Pressure [Right Arm] 118/70 Pulse Oximetry 98 98 <Leon Neville DO - Last Filed: 03/13/19 07:08> Orders Ordered: Discontinued Medications Cephalexin HCl (Keflex) 500 mg PO NOW ONE Stop: 03/12/19 17:13 Last Admin: 03/12/19 17:31 Dose: 500 mg Documented by: GHANSHYAM Vital Signs Vital signs: Vital Signs - 8 hr 03/12/19 15:19 03/12/19 17:07 Temperature 97.6 F 97.5 F L Pulse Rate 79 78 Respiratory Rate 14 16 Blood Pressure 125/76 Blood Pressure [Right Arm] 118/70 Pulse Oximetry 98 98 MDM - Abdominal Pain <DAVID Martino - Last Filed: 03/12/19 20:52> Medical Records Attestation: I reviewed the patient's medical records. Lab Data Attestation: I reviewed the patient's lab results. Result diagrams: 03/12/19 16:20 03/12/19 16:20 Labs: Lab Results 03/12/19 03/12/19 03/12/19 Range/Units 15:40 16:20 16:20 WBC 8.5 (4.5-11.0) X10^3/uL RBC 4.64 (4.0-5.2) X10^6/uL Hgb 12.7 (12.0-16.0) g/dL Hct 38.2 (36-46) % MCV 82.2 (80-100) fL MCH 27.4 (26-34) PG MCHC 33.3 (30-36) % RDW 14.4 (11.6-14.8) % Plt Count 232 (150-400) X10^3/uL Neut % (Auto) 79.6 H (50-75) % Lymph % (Auto) 12.5 L (25-40) % [place] % (Auto) 6.2 (3-14) % Eos % (Auto) 1.2 L (2-4) % Baso % (Auto) 0.5 (0-2) % Neut # (Auto) 6800 (1914-1826) /uL Lymph # (Auto) 1100 (5214-9802) /uL [place] # (Auto) 500 (0-900) /uL Eos # (Auto) 100 (0-450) /uL Baso # (Auto) 0 (0-100) /uL Sodium (137-145) mmol/L Potassium (3.4-5.1) mmol/L Chloride (98-107) mmol/L Carbon Dioxide (22-32) mmol/L BUN (7-17) mg/dL Creatinine (0.52-1.04) mg/dL Estimated GFR (>60) mL/min BUN/Creatinine Ratio (6-22) Glucose (70-100) mg/dL Lactate (0.7-2.1) mmol/L Calcium (8.4-10.2) mg/dL Total Bilirubin (0.2-1.3) mg/dL AST (14-36) IU/L ALT (9-52) IU/L Alkaline Phosphatase (38-126) U/L Total Protein (6.3-8.2) g/dL Albumin (3.5-5.0) g/dL Globulin (1.7-4.1) g/dL Albumin/Globulin Ratio (1.0-2.8) Lipase (23-300) U/L Procalcitonin 0.08 (<0.5) ng/mL Urine RBC 1-5/hpf (0-5/HPF) Urine WBC 30-100/hpf H (0-5/HPF) Ur Squamous Epith Cells 1-5 /hpf (0-5/HPF) Urine Bacteria Moderate (10-30) H (None) Urine Mucus 1+ H (Negative) Ur Culture Indicated? Specimen cultured 03/12/19 03/12/19 Range/Units 16:20 16:20 WBC (4.5-11.0) X10^3/uL RBC (4.0-5.2) X10^6/uL Hgb (12.0-16.0) g/dL Hct (36-46) % MCV (80-100) fL MCH (26-34) PG MCHC (30-36) % RDW (11.6-14.8) % Plt Count (150-400) X10^3/uL Neut % (Auto) (50-75) % Lymph % (Auto) (25-40) % [place] % (Auto) (3-14) % Eos % (Auto) (2-4) % Baso % (Auto) (0-2) % Neut # (Auto) (0940-3689) /uL Lymph # (Auto) (2532-5305) /uL [place] # (Auto) (0-900) /uL Eos # (Auto) (0-450) /uL Baso # (Auto) (0-100) /uL Sodium 141 (137-145) mmol/L Potassium 3.5 (3.4-5.1) mmol/L Chloride 106 (98-107) mmol/L Carbon Dioxide 23 (22-32) mmol/L BUN 15 (7-17) mg/dL Creatinine 0.60 (0.52-1.04) mg/dL Estimated GFR > 60.0 (>60) mL/min BUN/Creatinine Ratio 25.0 H (6-22) Glucose 125 H (70-100) mg/dL Lactate 1.0 (0.7-2.1) mmol/L Calcium 9.2 (8.4-10.2) mg/dL Total Bilirubin 0.6 (0.2-1.3) mg/dL AST 23 (14-36) IU/L ALT 20 (9-52) IU/L Alkaline Phosphatase 120 (38-126) U/L Total Protein 7.2 (6.3-8.2) g/dL Albumin 3.8 (3.5-5.0) g/dL Globulin 3.4 (1.7-4.1) g/dL Albumin/Globulin Ratio 1.1 (1.0-2.8) Lipase 59 (23-300) U/L Procalcitonin (<0.5) ng/mL Urine RBC (0-5/HPF) Urine WBC (0-5/HPF) Ur Squamous Epith Cells (0-5/HPF) Urine Bacteria (None) Urine Mucus (Negative) Ur Culture Indicated? Point of care testing: Urine Dip Bedside Urine Glucose Negative Bedside Urine Bilirubin + 1 Bedside Urine Ketone +/- 5 Urine Specific [place] 1.030 Bedside Urine Occult Blood +++ Bedside Urine pH 5.5 Bedside Urine Protein ++ 100 Bedside Urine Urobilinogen +/- 1mg Bedside Urine Nitrite - Negative Bedside Urine Leukocytes ++ 125 Esterase MDM Narrative Medical decision making narrative: Exam and history consistent with urinary tract infection (urinalysis positive for bacteria, mucus, and white blood cells, recent vaginal ). Less likely endometritis due to lack of cervical motion tenderness, vaginal discharge, and vaginal delivery versus (slightly low risk of infection). Less likely spinal abscess as patient did not get an epidural. Less likely acute abdominal etiologies such as appendicitis due to normal labs and lack of rebound tenderness or significant abdominal pain. Less likely pneumonia due to normal respiratory exam. Patient was treated with Keflex as this conducive to breast-feeding. Strict return precautions given and follow-up instructions discussed. <Leon Neville, DO - Last Filed: 03/13/19 07:08> Lab Data Labs: Lab Results 03/12/19 03/12/19 03/12/19 Range/Units 15:40 16:20 16:20 WBC 8.5 (4.5-11.0) X10^3/uL RBC 4.64 (4.0-5.2) X10^6/uL Hgb 12.7 (12.0-16.0) g/dL Hct 38.2 (36-46) % MCV 82.2 (80-100) fL MCH 27.4 (26-34) PG MCHC 33.3 (30-36) % RDW 14.4 (11.6-14.8) % Plt Count 232 (150-400) X10^3/uL Neut % (Auto) 79.6 H (50-75) % Lymph % (Auto) 12.5 L (25-40) % [place] % (Auto) 6.2 (3-14) % Eos % (Auto) 1.2 L (2-4) % Baso % (Auto) 0.5 (0-2) % Neut # (Auto) 6800 (0980-6130) /uL Lymph # (Auto) 1100 (4740-3592) /uL [place] # (Auto) 500 (0-900) /uL Eos # (Auto) 100 (0-450) /uL Baso # (Auto) 0 (0-100) /uL Sodium (137-145) mmol/L Potassium (3.4-5.1) mmol/L Chloride (98-107) mmol/L Carbon Dioxide (22-32) mmol/L BUN (7-17) mg/dL Creatinine (0.52-1.04) mg/dL Estimated GFR (>60) mL/min BUN/Creatinine Ratio (6-22) Glucose (70-100) mg/dL Lactate (0.7-2.1) mmol/L Calcium (8.4-10.2) mg/dL Total Bilirubin (0.2-1.3) mg/dL AST (14-36) IU/L ALT (9-52) IU/L Alkaline Phosphatase (38-126) U/L Total Protein (6.3-8.2) g/dL Albumin (3.5-5.0) g/dL Globulin (1.7-4.1) g/dL Albumin/Globulin Ratio (1.0-2.8) Lipase (23-300) U/L Procalcitonin 0.08 (<0.5) ng/mL Urine RBC 1-5/hpf (0-5/HPF) Urine WBC 30-100/hpf H (0-5/HPF) Ur Squamous Epith Cells 1-5 /hpf (0-5/HPF) Urine Bacteria Moderate (10-30) H (None) Urine Mucus 1+ H (Negative) Ur Culture Indicated? Specimen cultured 10/13/19 10/13/19 Range/Units 16:20 16:20 WBC (4.5-11.0) X10^3/uL RBC (4.0-5.2) X10^6/uL Hgb (12.0-16.0) g/dL Hct (36-46) % MCV (80-100) fL MCH (26-34) PG MCHC (30-36) % RDW (11.6-14.8) % Plt Count (150-400) X10^3/uL Neut % (Auto) (50-75) % Lymph % (Auto) (25-40) % [place] % (Auto) (3-14) % Eos % (Auto) (2-4) % Baso % (Auto) (0-2) % Neut # (Auto) (7788-6771) /uL Lymph # (Auto) (4692-6886) /uL [place] # (Auto) (0-900) /uL Eos # (Auto) (0-450) /uL Baso # (Auto) (0-100) /uL Sodium 141 (137-145) mmol/L Potassium 3.5 (3.4-5.1) mmol/L Chloride 106 (98-107) mmol/L Carbon Dioxide 23 (22-32) mmol/L BUN 15 (7-17) mg/dL Creatinine 0.60 (0.52-1.04) mg/dL Estimated GFR > 60.0 (>60) mL/min BUN/Creatinine Ratio 25.0 H (6-22) Glucose 125 H (70-100) mg/dL Lactate 1.0 (0.7-2.1) mmol/L Calcium 9.2 (8.4-10.2) mg/dL Total Bilirubin 0.6 (0.2-1.3) mg/dL AST 23 (14-36) IU/L ALT 20 (9-52) IU/L Alkaline Phosphatase 120 (38-126) U/L Total Protein 7.2 (6.3-8.2) g/dL Albumin 3.8 (3.5-5.0) g/dL Globulin 3.4 (1.7-4.1) g/dL Albumin/Globulin Ratio 1.1 (1.0-2.8) Lipase 59 (23-300) U/L Procalcitonin (<0.5) ng/mL Urine RBC (0-5/HPF) Urine WBC (0-5/HPF) Ur Squamous Epith Cells (0-5/HPF) Urine Bacteria (None) Urine Mucus (Negative) Ur Culture Indicated? Point of care testing: Urine Dip Bedside Urine Glucose Negative Bedside Urine Bilirubin + 1 Bedside Urine Ketone +/- 5 Urine Specific [place] 1.030 Bedside Urine Occult Blood +++ Bedside Urine pH 5.5 Bedside Urine Protein ++ 100 Bedside Urine Urobilinogen +/- 1mg Bedside Urine Nitrite - Negative Bedside Urine Leukocytes ++ 125 Esterase Discharge Plan Departure Patient Disposition: Home Clinical Impression: Urinary tract infection Qualifiers: Urinary tract infection type: acute cystitis Hematuria presence: with hematuria Qualified Code(s): N30.01 - Acute cystitis with hematuria Discharge Date/Time: 03/12/19 17:33 Instructions: DI for Urinary Tract Infection (UTI) Activity Restrictions/Additional Instructions: Thank you for entrusting me with your care today. As discussed, your urine indicates that you most likely have a urinary tract infection. I prescribed antibiotics, please take these as directed, you may continue to breast-feed with these antibiotics. Urine will be cultured, you will receive a call in 2 days if your antibiotics need to change depending on the infection that is present. Please follow up with your OB as directed. Return emergency department if you develop worsening symptoms, increased fevers, nausea, vomiting, severe abdominal pain, chest pain, shortness of breath. Your prescription was faxed to [facility]. Prescriptions: New cephalexin [Keflex] 500 mg capsule 500 mg PO BID 7 Days Qty: 14 RF: 0 No Action prenat.vits,manuel,jhw-zrao-jrbaf tablet 1 tab PO DAILY RF: 0 Referrals: Angelia Mcmillan ARNP [Primary Care Provider] - <Leon Neville DO - Last Filed: 03/13/19 07:08> Sign Out Provider Sign Out Attestation: I was available for consultation during this patient's emergency department visit. This chart is signed by myself for administrative purposes only. I did not have direct contact with this patient during this visit. They were seen independently by the APC.
[2019-03-12 16:14] LABS: Bacteria Urine Moderate (10-30); Culture Indicated Urine Specimen Cultured; Mucus Urine 1+ (Negative); RBC Urine 1-5/HPF (0-5/HPF); Squamous Epithelial Cell Urine 1-5 /HPF (0-5/HPF); WBC Urine 30-100/HPF (0-5/HPF)
[2019-03-12 16:46] LABS: Add Manual Diff / Slide Review NO; Basophils Absolute Auto 0 /uL (0-100); Basophils Percent Auto 0.5 % (0-2); Eosinophils Absolute Auto 100 /uL (0-450); Eosinophils Percent Auto 1.2 % (2-4); Hematocrit 38.2 % (36-46); Hemoglobin 12.7 g/dL (12.0-16.0); Lymphocytes Absolute Auto 1100 /uL (1100-4500); Lymphocytes Percent Auto 12.5 % (25-40); Mean Corpuscular HGB Conc 33.3 % (30-36); Mean Corpuscular Hemoglobin 27.4 PG (26-34); Mean Corpuscular Volume 82.2 fL (80-100); Monocytes Absolute Auto 500 /uL (0-900); Monocytes Percent Auto 6.2 % (3-14); Neutrophils Absolute Auto 6800 /uL (1500-7000); Neutrophils Percent Auto 79.6 % (50-75); Platelet Count 232 X10^3/uL (150-400); Red Blood Cell Count 4.64 X10^6/uL (4.0-5.2); Red Cell Distribution Width 14.4 % (11.6-14.8); White Blood Cell Count 8.5 X10^3/uL (4.5-11.0)
[2019-03-12 16:51] LABS: Alanine Aminotransferase 20 IU/L (9-52); Albumin 3.8 g/dL (3.5-5.0); Albumin Globulin Ratio 1.1 (1.0-2.8); Alkaline Phosphatase 120 U/L (38-126); Aspartate Aminotransferase 23 IU/L (14-36); Bilirubin Total 0.6 mg/dL (0.2-1.3); Blood Urea Nitrogen 15 mg/dL (7-17); Calcium 9.2 mg/dL (8.4-10.2); Carbon Dioxide 23 mmol/L (22-32); Chloride 106 mmol/L (98-107); Estimated Glomerular Filt Rate > 60.0 mL/min (>60); Globulin 3.4 g/dL (1.7-4.1); Glucose 125 mg/dL (70-100); HEMOLYSIS < 15 (0-50); Lipase 59 U/L (23-300); Potassium 3.5 mmol/L (3.4-5.1); Sodium 141 mmol/L (137-145); Total Protein 7.2 g/dL (6.3-8.2)
--- NOTE | 2019-03-12 17:04 | PC.NURSE ---
assisted DAVID Atwood with Pelvic exam
[2019-03-12 17:07] VITALS: BP 118/70; PULSE 78; RESP 16; TEMP 36.4; O2SAT 98
[2019-03-12] MEDS: cephALEXin 250 MG CAPSULE 500 MG PO (17:31)
[2019-03-12 17:42] LABS: Procalcitonin 0.08 ng/mL (<0.5)
== END 2019-03-12 17:33 | disposition home or self-care (01) ==
PROVIDERS: Emergency Provider Nurse Practitioner; PCP Nurse Practitioner Family
DX: N30.01 Acute cystitis with hematuria (principal)
CPT/HCPCS: 36415; 80053; 81003; 81015; 83605; 83690; 84145; 85025; 87086; 99283

== ENCOUNTER 2023-03-24 11:46 | Emergency (ER) | payer OTHER, SELFPAY ==
[2023-03-24 11:48] VITALS: BP 142/81; PULSE 75; RESP 16; TEMP 36.4; O2SAT 99; BMI 30.2
--- NOTE | 2023-03-24 11:56 | DI.CT.S_ITS ---
PROCEDURE: CT HEAD/BRAIN WO CON INDICATIONS: new onset double vision TECHNIQUE: Noncontrast 4.5 mm thick angled axial sections acquired from the foramen magnum to the vertex, with coronal and sagittal reformats. For radiation dose reduction, the following was used: automated exposure control, adjustment of mA and/or kV according to patient size. COMPARISON: None. FINDINGS: Image quality: Mild streak artifact can be seen through the skull base. CSF spaces: Basal cisterns are patent. No extra-axial fluid collections. Ventricles are normal in size and shape. Brain: No midline shift. No intracranial masses or hemorrhage. [place]aine[place]-white matter interface is normal. Skull and face: Calvarium and visualized facial bones are intact, without suspicious lesions. Sinuses: Visualized sinuses and mastoids are clear. IMPRESSION: No imaging explanation is found for this patient's presenting symptoms. To the limits of this noncontrast study, no findings of masses or mass effect can be seen. Dictated by: Jon Barcenas M.D. on 03/24/2023 at 11:12 Approved by: Jon Barcenas M.D. on 03/24/2023 at 11:12
[2023-03-24 13:27] VITALS: BP 110/66; PULSE 64; RESP 15; O2SAT 99
--- NOTE | 2023-03-24 13:45 | ED.NEUROSD ---
HPI - Neuro Symptoms/Deficit <Palmira Schwartz PA-C - Last Filed: 03/24/23 13:56> General Chief Complaint: Neuro Symptoms/Deficit Stated Complaint: Double Vision Time Seen by Provider: 03/24/23 11:56 Source: patient Mode of arrival: Ambulatory History of Present Illness HPI Narrative: Patient is a 37-year-old female with no significant past medical history who presents with double vision x1 day. Double vision started yesterday mid-day and initially she thought it was vertigo, which she has had before. She slept fine overnight and woke up this morning and had more significant double vision. It is worse when she looks to the left. She denies headache but does note a feeling of fullness/pressure behind her left eye and left temporal. She has no loss of visual field, no floaters, no rings of light. She has no history of headaches, no family history of MS or neurologic disease. She does not take any prescription medications every day. She lives on [address] and her primary care is [place] [address]. She does not wear contacts or glasses at baseline. On Anticoagulants: No Related Data Home Medications Medication Instructions Recorded Confirmed prenat.vits,manuel,slv-rzoj-oisij 1 tab PO DAILY 07/19/18 04/12/19 Allergies Allergy/AdvReac Type Severity Reaction Status Date / Time No Known Drug Allergies Allergy Verified 04/12/19 11:09 Review of Systems <Palmira Schwartz PA-C - Last Filed: 03/24/23 13:56> Review of Systems ROS Unobtainable: All systems reviewed & are unremarkable except as noted in HPI and below Hematologic/Lymphatic On Anticoagulants: No Patient History <Palmira Schwartz PA-C - Last Filed: 03/24/23 13:56> Medical History DUB (dysfunctional uterine bleeding) Surgical History Status post dilation and curettage Family History Father Age: 66 Heart disease Mother Age: 57 Diabetes mellitus Social History Smoking Status: Never smoker alcohol intake: never substance use type: does not use Smoking Status: Never smoker alcohol intake frequency: 0-2 drinks per day Substance Use Type: does not use Exam <Palmira Schwartz PA-C - Last Filed: 03/24/23 13:56> Narrative Exam Narrative: GENERAL: 37 year old patient appears stated age. Well-developed patient, in no distress. NEURO: Alert and oriented x3, mood/affect normal, normal speech, normal cognition. CN's (II-XII) grossly intact,. No gross motor deficit, 5/5 strength throughout, no gross sensory loss, normal movement, Negative Romberg test, normal [id number], no pronator drift, normal gait, normal dpob-ya-yddl, no ataxia with ambulation. HEAD: Atraumatic. Normocephalic. EYES: Pupils equal round and reactive. Extraocular motions intact. No scleral icterus. No injection or drainage. Diplopia is present when looking left with both eyes open. There is no diplopia when looking through 1 eye at a time. There is no diplopia with looking up, looking right work looking down. Her eyes track equally and there is no leg. There is no nystagmus or ptosis or proptosis. There is no pain with eye movement in any direction. There is no periorbital swelling or erythema. ENT: Nose without bleeding or purulent drainage. Throat without erythema, tonsillar hypertrophy or exudate. TMs pearly lainez bilaterally. Airway patent. NECK: Trachea midline. Non tender RESPIRATORY: No distress or increased work of breathing SKIN: No rash or erythema of visible areas Initial Vital Signs Initial Vital Signs: Vital Signs Temperature 97.5 F L 03/24/23 11:48 Pulse Rate 75 03/24/23 11:48 Respiratory Rate 16 03/24/23 11:48 Blood Pressure 142/81 H 03/24/23 11:48 Pulse Oximetry 99 03/24/23 11:48 Oxygen Delivery Method Room Air 03/24/23 11:48 <Kyleigh Rashid MD - Last Filed: 03/24/23 14:44> Initial Vital Signs Initial Vital Signs: Vital Signs Temperature 97.5 F L 03/24/23 11:48 Pulse Rate 75 03/24/23 11:48 Respiratory Rate 16 03/24/23 11:48 Blood Pressure 142/81 H 03/24/23 11:48 Pulse Oximetry 99 03/24/23 11:48 Oxygen Delivery Method Room Air 03/24/23 11:48 Course <Palmira Schwartz PA-C - Last Filed: 03/24/23 13:56> Orders Ordered: ED Orders 03/24/23 11:56 CT head/brain wo con Stat Vital Signs Vital signs: Vital Signs - 8 hr 03/24/23 11:48 03/24/23 13:27 Temperature 97.5 F L Pulse Rate 75 64 Respiratory Rate 16 15 Blood Pressure 142/81 H 110/66 Pulse Oximetry 99 99 Oxygen Delivery Method Room Air Room Air <Kyleigh Rashid MD - Last Filed: 03/24/23 14:44> Orders Ordered: ED Orders 03/24/23 11:56 CT head/brain wo con Stat Vital Signs Vital signs: Vital Signs - 8 hr 03/24/23 11:48 03/24/23 13:27 Temperature 97.5 F L Pulse Rate 75 64 Respiratory Rate 16 15 Blood Pressure 142/81 H 110/66 Pulse Oximetry 99 99 Oxygen Delivery Method Room Air Room Air MDM - Neuro Symptoms/Deficit <Palmira Schwartz PA-C - Last Filed: 03/24/23 13:56> Lab Data Labs: Point of Care Testing Test Results Negative Urine Dip Bedside Urine Glucose Negative Bedside Urine Bilirubin - Negative Bedside Urine Ketone - Negative Urine Specific [place] 1.010 Bedside Urine Occult Blood - Negative Bedside Urine pH 6.0 Bedside Urine Protein - Negative Bedside Urine Urobilinogen - Negative Bedside Urine Nitrite - Negative Bedside Urine Leukocytes - Negative Esterase Imaging Data CT scan - head: Radiologist's Impression: PROCEDURE: CT HEAD/BRAIN WO CON INDICATIONS: new onset double vision TECHNIQUE: Noncontrast 4.5 mm thick angled axial sections acquired from the foramen magnum to the vertex, with coronal and sagittal reformats. For radiation dose reduction, the following was used: automated exposure control, adjustment of mA and/or kV according to patient size. COMPARISON: None. FINDINGS: Image quality: Mild streak artifact can be seen through the skull base. CSF spaces: Basal cisterns are patent. No extra-axial fluid collections. Ventricles are normal in size and shape. Brain: No midline shift. No intracranial masses or hemorrhage. [place]aine[place]-white matter interface is normal. Skull and face: Calvarium and visualized facial bones are intact, without suspicious lesions. Sinuses: Visualized sinuses and mastoids are clear. IMPRESSION: No imaging explanation is found for this patient's presenting symptoms. To the limits of this noncontrast study, no findings of masses or mass effect can be seen. Dictated by: Jon Barcenas M.D. on 03/24/2023 at 11:12 Approved by: Jon Barcenas M.D. on 03/24/2023 at 11:12 [facility] Narrative Medical decision making narrative: Multiple etiologies for patient's symptoms considered including, but not limited to: Stroke, intracranial bleed or mass, TIA, nerve palsy from infectious or demyelinating etiology, ocular or retinal migraine. Patient's physical exam is very reassuring. She is no neurologic abnormality aside from the double vision when looking left. Her eye eyes are normal in appearance. Her visual acuity is intact. Discussed with Dr. Rashid; noncontrast head CT is negative today. Discussed trial of migraine cocktail with the patient to see if this resolves her symptoms, she prefers not to do this at this time because she is having no pain. Suggest watchful waiting, follow up with primary care if persists and seek referral to Neurology for Neuro-Ophthalmology. Strict return precautions advised. Patient's symptoms improved over duration of stay with above-stated therapies. Findings and discharge diagnosis discussed with patient/family followed by verbalization of understanding Return precautions discussed with patient/family whom verbalize understanding of diagnosis and plan <Kyleigh Rashid MD - Last Filed: 03/24/23 14:44> Lab Data Labs: Point of Care Testing Test Results Negative Urine Dip Bedside Urine Glucose Negative Bedside Urine Bilirubin - Negative Bedside Urine Ketone - Negative Urine Specific [place] 1.010 Bedside Urine Occult Blood - Negative Bedside Urine pH 6.0 Bedside Urine Protein - Negative Bedside Urine Urobilinogen - Negative Bedside Urine Nitrite - Negative Bedside Urine Leukocytes - Negative Esterase Discharge Plan Departure Patient Disposition: Home Clinical Impression: Diplopia Instructions: DI for Double Vision Activity Restrictions/Additional Instructions: *You have been diagnosed with double vision. Your head CT today did not show any evidence of a stroke. Your eye exam is very reassuring because your eyes move symmetrically and normally. I would suggest continuing to monitor and follow up with your primary care if this persists, and seek a referral to Neurology. It would also make sense to see an apartment leasing specialist for an eye exam. If you develop any pain with eye movement, severe headache, nausea vomiting, I bulging or other new symptoms, please return to the emergency department. *What to do: *Please continue to take your regular medications as directed. [ ] New medication prescriptions sent to your pharmacy: [ ] [ ] New medication written as a paper prescription [x] No new medications given *Please follow up with your primary care provider in 2-3 days, call for an appointment. Let them know you were seen in the Emergency Department and that we ask that you be seen in follow up. We will electronically transmit a record of today's note if your PCP is in our system *If you do not have a primary care provider please contact the [facility] Resource line at [phone]. They will ask some questions about your medical history and help get you set up with a doctor in the community. *Return to Emergency Department if you should have any new, worsening or concerning symptoms, such as [fever greater than 101 F, shaking chills, worsening pain, persistent vomiting or other concerning symptoms]. Prescriptions: No Action prenat.vits,manuel,ubg-avke-lscht tablet 1 tab PO DAILY Referrals: Angelia Mcmillan ARNP [Primary Care Provider] - Stand Alone Forms: Patient Portal/API ED Sign-out <Kyleigh Rashid MD - Last Filed: 03/24/23 14:44> Cosign ED Attending Cosnbaature Attestation: I DID NOT SEE THIS PATIENT. I WAS AVAILABLE ALL TIMES FOR CONSULTATION.
== END 2023-03-24 13:27 | disposition home or self-care (01) ==
PROVIDERS: Emergency Provider Physician Assistant; PCP Nurse Practitioner Family
DX: H53.2 Diplopia (principal)
CPT/HCPCS: 70450; 81003; 81025; 99283; 99284